=== PATIENT | female | born 1945 ===

== ENCOUNTER 2017-07-03 14:40 | Outpatient (RCR) | payer BC | END 2017-07-22 | disposition home or self-care (01) | LOC: WCC 14:40 | DX: C50.919 Malignant neoplasm of unspecified site of unspecified female breast (principal); L59.8 Other specified disorders of the skin and subcutaneous tissue related to radiation; Z90.13 Acquired absence of bilateral breasts and nipples; Z90.89 Acquired absence of other organs; E11.9 Type 2 diabetes mellitus without complications; I10 Essential (primary) hypertension; Z91.018 Allergy to other foods ==